=== PATIENT | female | born 1960 | race Caucasian/White ===

== ENCOUNTER 2016-12-11 11:34 | Emergency (ER) | payer OTHER ==
[2016-12-11 12:15] LABS: BASOPHIL# 0.1 X 10^3uL (0.0-0.1); BASOPHILS 1.9 % (0.0-2.0); EOSINOPHILS 1.2 % (0.0-6.0); EOSINOPHILS# 0.1 X 10^3uL (0.0-0.4); HEMATOCRIT 47.1 % (36.0-48.0); HEMOGLOBIN 16.3 g/dL (12.0-16.0); LYMPHOCYTES 25.4 % (20.0-40.0); LYMPHOCYTES# 1.5 X 10^3uL (0.8-3.8); MEAN CELL VOLUME 84.3 fL (80.0-100.0); MEAN CORPUS. HGB CONCENTRATION 34.6 g/dL (32.0-36.0); MEAN CORPUSCULAR HEMOGLOBIN 29.2 pg (29.0-35.0); MEAN PLATELET VOLUME 7.3 fL (7.4-10.4); MONOCYTES 7.1 % (2.0-10.0); MONOCYTES# 0.4 X 10^3uL (0.2-1.0); NEUTROPHILS 64.4 % (54.0-75.0); NEUTROPHILS# 3.7 X 10^3uL (2.6-6.7); PLATELET COUNT 307 X 10^3uL (130-440); RED BLOOD COUNT 5.58 X 10^6uL (4.20-6.10); RED CELL DISTRIBUTION WIDTH 11.9 % (11.5-14.5); WHITE BLOOD COUNT 5.8 X 10^3uL (3.9-10.7)
[2016-12-11] MEDS ORDERED: ONDANSETRON HCL 4 MG/2 ML VIAL ONE (12:17)
[2016-12-11 12:26] LABS: BLOOD UREA NITROGEN 12 mg/dL (7-17); CALCIUM 9.4 mg/dL (8.4-10.2); CHLORIDE 104 mmol/L (98-107); CREATININE 0.7 mg/dL (0.5-1.0); EST GLOMERULAR FILTRATION RATE > 60 mL/min; GLUCOSE 92 mg/dL (70-100); MAGNESIUM 2.3 mg/dL (1.6-2.3); POTASSIUM 4.3 mmol/L (3.5-5.1); SODIUM 142 mmol/L (137-145)
[2016-12-11 12:38] LABS: TROPONIN I < 0.012 ng/mL (0.00-0.034)
--- NOTE | 2016-12-11 14:33 | RADIOLOGY REPORT ---
A limited single portable view of the chest is compared with the prior examination dated 08/10/2013. The heart and vessels are stable and unremarkable. The lung brown are clear. No infiltrate, fluid or pneumothorax is seen. IMPRESSION: Limited single portable view of the chest demonstrates no acute cardiopulmonary abnormality. MTDD
--- NOTE | 2016-12-11 14:33 | ER NURSING DOCUMENTATION ---
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 She was nauseated and had tingling in both arms. Pt denies diaphoresis. Transition of care: Home. 11:42 Acuity: YESSICA 2 rh 11:42 Method Of Arrival: Private Vehicle rh 14:27 AIR CAT ACTIVATION no. Asprin Given Given in ED 324 mg po. rh Triage Assessment: 12:10 General: Appears in no apparent distress, Behavior is cooperative. Pain: Complains of rh pain in chest. EENT: Oral mucosa is dry. Neuro: Level of Consciousness is awake, alert, obeys commands. Cardiovascular: Capillary refill < 3 seconds Reports Nausea shortness of breath Denies lightheadedness, Rhythm is sinus rhythm Chest pain is described as mild, quality is heaviness, is located in anterior chest wall has moved or radiated since the onset. Unable to elicit due to patient's condition. began 30 minutes prior to arrival. Respiratory: Airway is patent Respiratory effort is even, unlabored, Respiratory pattern is regular, symmetrical, Breath sounds are clear bilaterally. Denies shortness of breath. GI: Abdomen is non- distended Abd is soft and non tender X 4 quads. Reports nausea, Denies diarrhea, vomiting. : No deficits noted. Derm: Skin is intact, is healthy with good turgor, Skin is pink, warm & dry. Musculoskeletal: Circulation, motion, and sensation intact Range of motion intact in all extremities. Historical: - Allergies: Codeine; PENICILLINS; - PMHx: MIGRAINES; DEPRESSION; - PSHx: NONE; - Tetanus: < 10 years. - Ebola Screening: : Patient negative for fever greater than or equal to 101.5 degrees Fahrenheit, and additional compatible Ebola Virus Disease symptoms. - Social history: Smoking status: Patient states former smoker of tobacco. - Immunization history: Flu Vaccine < 1 year. Screenin:13 Infectious Disease Risk None. Abuse screen: Denies threats or abuse. Denies injuries rh from another. Nutritional screening: No deficits noted. Assessment: 12:13 See Triage Assessment done by same RN. rh 13:30 Reassessment: Pt taken to cardiology clinic for ECHO. rh 13:38 Reassessment: Pt brought to cardiac clinic via wheelchair. tg 14:27 Pain: Pain does not radiate. Pain began 30 min ago. rh Vital Signs: 11:50 BP 149 / 68; Pulse 77; Resp 16; Temp 97.7; Pulse Ox 97% on R/A; Weight 67.13 kg; Height rh 5 ft. 1 in. (154.94 cm); Pain 1/10; 12:36 BP 128 / 60; Pulse 63; Resp 16; Pulse Ox 94% on R/A; Pain 0/10; rh 13:27 Pulse 67 MON; Resp 18; Pulse Ox 92% ; lpr 13:28 BP 144 / 86 (auto/); lpr 11:50 Body Mass Index 27.96 (67.13 kg, 154.94 cm) rh [place] Coma Score: 12:42 Eye Response: spontaneous(4). Verbal Response: oriented(5). Motor Response: obeys cd commands(6). Total: 15. ED Course: 11:35 Patient arrived in ED. ds 11:35 Fauzia Mendoza MD is Private Physician. ds 11:42 Ines Parker is Primary Nurse. rh 11:42 Triage completed. rh 11:44 Larry Rodriges MD is Attending Physician. cd 11:45 personnel monitor on. Pulse ox on. NIBP on. rh 11:58 CHEST; SINGLE VIEW [id number] In Process Unspecified. EDMS 12:13 Valuables Remains with patient Patient has correct armband on for positive rh identification. Placed in gown. Bed in low position. Call light in reach. Side rails up X2. 12:41 EKG attached lpr 14:21 Fauzia Mendoza MD is Referral Physician. cd 14:27 Oxygen O2 via N/A. rh Administered Medications: 11:49 Drug: Aspirin Chewable Tablet 324 mg; Route: PO; rh 14:26 Follow up: Response: No adverse reaction rh 12:06 Drug: Zofran 4 mg; Route: IVP; Infused Over: 2 mins; Site: left antecubital; rh 14:26 Follow up: Response: Nausea is decreased rh Outcome: 14:22 Discharge ordered by . hilda 14:26 Discharged to home ambulatory. lpr 14:26 Condition: good 14:26 Discharge Assessment: Patient awake, alert and oriented x 3. No cognitive and/or functional deficits noted. Patient verbalized understanding of disposition instructions. 14:26 Discharge instructions given to patient, Instructed on discharge instructions, follow up and referral plans. Demonstrated understanding of instructions. 14:32 Patient left the ED. rh Signatures: Dispatcher [employer] EDRick Allison RN RN tg Calixto, Jane, Reg Reg Larry Horton MD MD cd Roberts, Leslie, RN RN lpr Hofsess, Rachel rh
--- NOTE | 2016-12-11 14:33 | ER PHYSICIAN DOCUMENTATION ---
Physician Documentation [facility] Name:Sneha Mccall Age:56 yrs Sex:Female :1960 Arrival Date:12/11/2016 Time:11:34 BedTrauma-B Private MD:Fauzia Mendoza ED PhysicianDajacquiLarry Disposition: 12/11 14:21 Critical Care: not applicable. cd Disposition: 12/11/16 14:22 Discharged to Home/Self Care. Impression: Non-Cardiac Chest Pain. - Condition is Good. - Discharge Instructions: CHEST PAIN, Noncardiac. - Medical Reconciliation form form. - Follow up: Fauzia Mendoza MD; When: 7 - 10 days; Reason: Recheck today's complaints, Continuance of care. - Problem is new. - Symptoms are resolved. HPI: 11:36 This 56 yrs old Female presents to ER via Private Vehicle with complaints of cd Chest Pain. 11:36 The patient or guardian reports chest pain that is located primarily in the substernal cd area. Onset: acutely, 45 minute(s) ago. The pain does not radiate. There has been no movement of pain. Associated signs and symptoms: Pertinent positives: tingling in both arms, Pertinent negatives: abdominal pain, cough, diaphoresis, dizziness, lower extremity pain, lower extremity swelling, lightheadedness, nausea, palpitations, shortness of breath, syncope, vomiting. The chest pain is described as dull, a heaviness. Duration: The patient or guardian reports a single episode, that is now resolved. Severity of pain: At its worst the pain was moderate in the emergency department the pain has resolved. Risk factors for coronary artery disease include: This patient does not have any risk factors for coronary artery disease. Historical: - Allergies: Codeine; PENICILLINS; - PMHx: MIGRAINES; DEPRESSION; - PSHx: NONE; - Tetanus: < 10 years. - Ebola Screening: : Patient negative for fever greater than or equal to 101.5 degrees Fahrenheit, and additional compatible Ebola Virus Disease symptoms. - Social history: Smoking status: Patient states former smoker of tobacco. - Immunization history: Flu Vaccine < 1 year. ROS: 12:42 Constitutional: Negative for chills, fever, poor PO intake. cd 12:42 Cardiovascular: Positive for chest pain, Negative for edema, orthopnea, palpitations. 12:42 Respiratory: Negative for cough, dyspnea on exertion, hemoptysis, pleurisy, sputum production, wheezing. 12:42 All other systems are negative. Exam: 12:42 ENT: Nares patent. No nasal discharge, no septal abnormalities noted. Tympanic cd membranes are normal and external auditory canals are clear. Oropharynx with no redness, swelling, or masses, exudates, or evidence of obstruction, uvula midline. Mucous membranes moist. Neck: Trachea midline, no thyromegaly or masses palpated, and no cervical lymphadenopathy. Supple, full range of motion without nuchal rigidity, or vertebral point tenderness. No Meningismus. Chest/axilla: Normal chest wall appearance and motion. Nontender with no deformity. No lesions are appreciated. Abdomen/GI: Soft, non-tender, with normal bowel sounds. No distension or tympany. No guarding or rebound. No evidence of tenderness throughout. Back: No spinal tenderness. No costovertebral tenderness. Full range of motion. Skin: Warm, dry with normal turgor. Normal color with no rashes, no lesions, and no evidence of cellulitis. MS/ Extremity: Pulses equal, no cyanosis. Neurovascular intact. Full, normal range of motion. 12:42 Neuro: Awake and alert, GCS 15, oriented to person, place, time, and situation. cd Cranial nerves II-XII grossly intact. Motor strength 5/5 in all extremities. Sensory grossly intact. Cerebellar exam normal. Normal gait. 12:42 Constitutional: The patient appears alert, awake, non-diaphoretic, non-toxic, well developed, well nourished, anxious. 12:42 Cardiovascular: Rate: normal, Rhythm: regular, Pulses: no pulse deficits are appreciated, Heart sounds: normal, Edema: is not appreciated. 12:42 Respiratory: the patient does not display signs of respiratory distress, Respirations: normal, no acute changes, Breath sounds: are normal, clear throughout. Vital Signs: 11:50 BP 149 / 68; Pulse 77; Resp 16; Temp 97.7; Pulse Ox 97% on R/A; Weight 67.13 kg; Height rh 5 ft. 1 in. (154.94 cm); Pain 1/10; 12:36 BP 128 / 60; Pulse 63; Resp 16; Pulse Ox 94% on R/A; Pain 0/10; rh 13:27 Pulse 67 MON; Resp 18; Pulse Ox 92% ; lpr 13:28 BP 144 / 86 (auto/); lpr 11:50 Body Mass Index 27.96 (67.13 kg, 154.94 cm) rh [place] Coma Score: 12:42 Eye Response: spontaneous(4). Verbal Response: oriented(5). Motor Response: obeys cd commands(6). Total: 15. MDM: 11:40 Differential diagnosis: acute myocardial infarction, acute pericarditis, anxiety, cd coronary artery disease chest wall pain, cholecystitis, costochondritis, esophagitis, pulmonary embolus. Patient took aspirin in the Emergency Department. Patient did not receive fibrinolytic due to not indicated. 11:44 Patient medically screened. 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 Interpretation: normal. 11:46 ECG:. cd 11:50 Data reviewed: vital signs, nurses notes, old medical records, EKG, and as a result, I cd will continue to observe the patient, initiate a consult, with a gas station manager, from a and order a Stress Echo Test if the patient's labs and CXR are negative. 12:10 GEETA Risk Score: TOTAL SCORE = 0. cd 12:41 EKG attached lpr 14:10 Physician consultation: Bobo Pritchard MD was called at 13:45, was contacted at 13:45, cd regarding consult, patient's condition, need to evaluate the patient as soon as possible, for Stress Echo Test, Stress Echocardiogram was normal. 14:25 Counseling: I had a detailed discussion with the patient and/or guardian regarding: the cd historical points, exam findings, and any diagnostic results supporting the discharge/admit diagnosis, lab results, radiology results, the need for outpatient follow up, for a recheck, with the patient's primary care provider, to return to the emergency department if symptoms worsen or persist or if there are any questions or concerns that arise at home. 12/11 12:22 Order name: CBC AUTO DIF, MDIF/RMOR IF IND; Complete Time: 13:05 EDMS 12/11 12:28 Interpretation: Normal. cd 12/11 12:27 Order name: DDIMER; Complete Time: 13:05 EDMS 12/11 12:28 Interpretation: Normal: Mildly Elevated. 12/11 12:30 Order name: BASIC METABOLIC PANEL; Complete Time: 13:05 EDMS 12/11 12:33 Interpretation: Normal. 12/11 12:30 Order name: MAGNESIUM; Complete Time: 13:05 EDMS 12/11 12:33 Interpretation: Normal. 12/11 12:38 Order name: TROPONIN I; Complete Time: 13:05 EDMS 12/11 13:05 Interpretation: Normal. 12/11 11:58 Order name: CHEST; SINGLE VIEW [id number]; Complete Time: 12:28 EDMS 12/11 12:28 Interpretation: Normal. 12/11 21:23 Order name: CHEST; SINGLE VIEW [id number] EDTN 12/11 11:43 Order name: EKG - 12 Lead; Complete Time: 11:48 12/11 11:43 Order name: Iv Saline Lock; Complete Time: 11:48 12/11 11:45 Order name: Place Patient On Monitor; Complete Time: 11:49 cd 12/11 11:45 Order name: Pulse Ox Continuous; Complete Time: 11:49 cd EC:46 Rate is 62 beats/min. Rhythm is regular. QRS [place] is Normal. IL interval is normal. QRS cd interval is normal. QT interval is normal. No Q waves. T waves are Normal. No ST changes noted. Clinical impression: Normal ECG and No evidence of ischemia. Interpreted by me. Dispensed Medications: 11:49 Drug: Aspirin Chewable Tablet 324 mg; Route: PO; rh 14:26 Follow up: Response: No adverse reaction rh 12:06 Drug: Zofran 4 mg; Route: IVP; Infused Over: 2 mins; Site: left antecubital; rh 14:26 Follow up: Response: Nausea is decreased rh Signatures: Larry Rodriges MD MD cd Roberts, Leslie, RN RN lpr Hofsess, Rachel rh
== END 2016-12-11 14:33 | disposition home or self-care (01) ==
LOC: ER 11:34
DX: R07.89 Other chest pain (principal)
CPT/HCPCS: 71010; 80048; 83735; 84484; 85025; 85379; 93351; 96374; 99284; J2405